=== PATIENT | male | born 1980 | race Two or more races ===

== ENCOUNTER 2020-01-19 15:19 | Emergency (ER) | payer OTHER, SELFPAY ==
[2020-01-19 15:30] VITALS: BP 117/71; PULSE 64; RESP 16; TEMP 36.7; O2SAT 97; BMI 60.5
--- NOTE | 2020-01-19 16:24 | CT_ITS ---
EXAMINATION: NONCONTRAST HEAD CT NONCONTRAST MAXILLOFACIAL CT NONCONTRAST CERVICAL SPINE CT INDICATION INFORMATION: Fall COMPARISON: None TECHNIQUE: Separate noncontrast CT examinations of the head, maxillofacial bones, and cervical spine were performed. Coronal and sagittal images were created for each examination at the technologist workstation. This CT examination was performed using dose optimization techniques as appropriate, variously including the following: *Automated exposure control *Adjustment of mA and/or kV according to patient size (this includes techniques or standardized protocols for targeted exams where dose is matched to indication/reason for exam; i.e. extremities or head) *Use of iterative reconstruction technique DLP: 1417 mGy-cm FINDINGS: Head: There is no evidence of acute intracranial hemorrhage or territorial infarction. No abnormal mass effect or midline shift is seen. Martinez to white matter differentiation is well preserved. No extra-axial fluid collections are identified. No hydrocephalus. No significant volume loss. There is no abnormal attenuation within the brain parenchyma. No acute soft tissue abnormality. No calvarial fracture. The mastoid air cells are well aerated. Maxillofacial: No acute maxillofacial fractures are seen. The pterygoid plates are intact. The lamina papyracea are intact. The zygomatic arches are intact. The nasal bone is intact. The orbital rims are intact. The mandible is intact. The frontal, maxillary, ethmoid, and sphenoid sinuses are well aerated. The uncinate process is normal bilaterally. The infundibula and middle meati are patent. The nasal septum deviates to the right. The mandibular heads are well-seated in the condylar fossa. The orbits demonstrate a normal appearance bilaterally. The globes are intact, and there are no suspicious findings to suggest retrobulbar hemorrhage. Cervical spine: There is anatomic alignment of the vertebral bodies and posterior elements. The atlantoaxial and atlantooccipital articulations are intact. Vertebral body heights and intervertebral disc spaces are maintained. No evidence of acute fracture. No prevertebral soft tissue swelling. Visualized portions of the lung apices are unremarkable. The thyroid gland is unremarkable. CT/CT cervical spine wo con IMPRESSION: No acute intracranial finding. No acute maxillofacial fracture. No acute fracture or malalignment of the cervical spine.
--- NOTE | 2020-01-19 16:58 | ED.HEATRA ---
HPI - Head Injury General Chief complaint: Head Injury Stated complaint: fall Source: patient Mode of arrival: ambulatory Limitations: no limitations History of Present Illness HPI Narrative: patient states he was on the ladder painting and when he was getting off the ladder his foot slipped on the ground and he fell backward and hit the back of his head and neck on the toilet. Patient may have had LOss of consicousness. patient states incident occurred this morning. Patient states since than only complaint is posterior scalp pain. patient denies any chest pain, nausea, rectal bleeding, vomitting blood, shortness of breath, dizziness, abdominal pain, or blood in Urine. Related Data Previous Rx's Medication Instructions Recorded naproxen 500 mg PO BID PRN #20 tab 01/19/20 Allergies Allergy/AdvReac Type Severity Reaction Status Date / Time seafood Allergy Hives Verified 01/19/20 15:41 Review of Systems Review of Systems: Yes all other systems are reviewed and are negative Constitutional: Constitutional: Reports as per HPI, Reports no additional constitutional complaints and Reports headache(s) Eyes: Eyes: Reports as per HPI and Reports no additional eye complaints ENT: Reports system reviewed and no additional complaints, except as documented, Reports as per HPI, Reports headache(s) and Reports neck pain Cardiovascular: Cardiovascular: Reports as per HPI and Reports no additional cardiovascular complaints Respiratory: Respiratory: Reports as per HPI and Reports no additional respiratory complaints Gastrointestinal: Gastrointestinal: Reports as per HPI and Reports no additional gastrointestinal complaints Genitourinary: Genitourinary: Reports no additional male genitourinary complaints and Reports as per HPI Musculoskeletal: Musculoskeletal: Reports no additional musculoskeletal complaints, Reports as per HPI and Reports neck pain Neurologic: Reports system reviewed and no additional complaints, except as documented, Reports as per HPI and Reports headache(s) Psychiatric: Psychiatric: Reports no additional psychiatric complaints and Reports as per HPI [facility] Past Medical History Medical History (Updated 01/19/20 @ 17:28 by GEOFFREY Frey) Anxiety Insomnia Social History Social History Advance Directives: No Advance Directives Information Provided: No Physical Exam Vital Signs: Vital Signs: Last Vital Signs Temp 98.1 F 01/19/20 15:30 Pulse 64 01/19/20 15:30 Resp 16 01/19/20 15:30 BP 117/71 01/19/20 15:30 Pulse Ox 97 11/19/20 15:30 Body Mass Index 60.5 Const: General: cooperative, healthy appearing, comfortable, no acute distress, well developed, alert and awake Orientation/consciousness: patient oriented x3 HENMT: Head: Yes normal to inspection, Yes No palpable skull fracture present, Yes atraumatic, No abrasion, No Davis's sign, No contusion, No cranial bruits, No hematoma, No laceration, No palpable skull fracture, No raccoon eyes, No scalp lesion, No scalp tenderness and No Temporal artery tenderness present Eyes: General: appearance normal, both eyes and all related structures Neck: Neck: Yes normal visual inspection, Yes full ROM, Yes no lymphadenopathy, Yes no meningeal signs, Yes trachea midline, Yes supple and Yes tender (posterior neck tenderness on palpation) Chest: Other: negative for any ecchyomsis Chest palpation & inspection: normal inspection of the chest, normal palpation of entire chest wall and no localized rib tenderness Resp: Effort & Inspection: normal respiratory effort and able to speak in complete sentences Auscultation: clear to auscultation bilaterally, no crackles, no rales, no rhonchi and no wheezes Cardio: Jugular venous distension: no JVD Heart sounds: S1 normal heart sound present and S2 normal heart sound present GI: Inspection: Yes normal to inspection and No abdominal wall ecchymosis Palpation (GI): Soft to palpation, not firm, nontender, no guarding and not rigid : General: No CVA tenderness and Yes no CVA tenderness Back/Spine/Pelvis: Back: no CVA tenderness, No CVA tenderness and No back tenderness Skin: General skin exam: no rashes or lesions noted Neuro: General: patient oriented x3, gait normal, no meningeal signs and CN's II-XI intact bilaterally Cranial nerves: Yes CN's II-XII intact bilaterally Extrem: General: Yes normal to inspection and Yes full ROM Psych: Appearance: grossly normal, well kempt and not disheveled Course Course Course Narrative: Patient will be sent for head CT, Cpsine, and facial CT to rule out Bleed or fracutre. patient is A0x3. Reevaluation(s) Reevaluation #1: imagings were negative. Time: 17:26 MDM - Head Injury MDM Narrative Medical decision making narrative: neck strain. head injury Discharge Plan Discharge Clinical Impression: Head injury due to trauma Patient Disposition: Home, Self-Care Instructions: Head Injury (ED) Additional Instructions: Return to the ED immediatley for any abdominal pain, chest pain, flank pain, blood in urine, blood in stool, vomitting blood, severe headache, nausea, dizziness, or any other concerning symptoms. Follow up with PCP Prescriptions: New naproxen 500 mg tablet 500 mg PO BID PRN (Reason: pain) Qty: 20 RF: 0 Print Language: Indonesian
[2020-01-19 17:44] VITALS: BP 118/72; PULSE 59; RESP 16; TEMP 36.6; O2SAT 99
== END 2020-01-19 17:51 | disposition home or self-care (01) ==
PROVIDERS: Emergency Provider Emergency Medicine
DX: S09.90XA Unspecified injury of head, initial encounter (principal); R51.9 Headache, unspecified; M54.2 Cervicalgia; W11.XXXA Fall on and from ladder, initial encounter; Y93.9 Activity, unspecified; Y92.9 Unspecified place or not applicable; Y99.9 Unspecified external cause status; Z79.899 Other long term (current) drug therapy
CPT/HCPCS: 70450; 70486; 72125; 99284

== ENCOUNTER 2021-01-23 14:00 | Emergency (ER) | payer OTHER, SELFPAY ==
[2021-01-23 14:10] VITALS: BP 137/82; PULSE 62; RESP 18; TEMP 36.1; O2SAT 98; BMI 25.8
--- NOTE | 2021-01-23 14:12 | ECG_ITS ---
Test Reason : chest pain Blood Pressure : / mmHG Vent. Rate : 061 BPM Atrial Rate : 061 BPM P-R Int : 126 ms QRS Dur : 078 ms QT Int : 394 ms P-R-T Axes : 050 038 053 degrees QTc Int : 396 ms Normal sinus rhythm Minimal voltage criteria for LVH, may be normal variant ( Sokolow-Linton ) Borderline ECG No significant changes seen Referred By: Generic ED Physician Electronically Signed By:DEREK DREW MD
== END 2021-01-23 16:43 | disposition left against medical advice (07) ==
LOC: HO.ED 16:41
PROVIDERS: Emergency Provider Emergency Medicine
DX: R42 Dizziness and giddiness (principal); R07.9 Chest pain, unspecified; M79.605 Pain in left leg; M79.604 Pain in right leg
CPT/HCPCS: 93005; 99282; 99283